=== PATIENT | female | born 1970 | race Hispanic/Latino ===

== ENCOUNTER 2017-04-16 13:21 | Emergency (ER) | payer OTHER ==
[2017-04-16 14:11] LABS: #Basophils 0.1 thou/uL (0.0-0.2); #Eosinphils 0.1 thou/uL (0.0-0.7); #Lymphocytes 3.7 thou/uL (1.20-3.40); #Monocytes 0.6 thou/uL (0.11-0.59); #Neutrophils 3.1 thou/uL (1.40-6.50); %Basophils 1.6 % (0.0-1.0); %Eosinophils 1.6 % (0.0-10.0); %Lymphocytes 48.3 % (21.0-51.0); %Monocytes 8.3 % (0.0-10.0); %Neutrophils 40.2 % (42.0-75.0); Hemoglobin 12.1 g/dL (12.0-16.0); Mean Corpuscular HGB CONC 33.4 g/dL (32.0-36.0); Mean Corpuscular Hemoglobin 29.4 pg (27.0-31.0); Mean Corpuscular Volume 88.1 fl (81.0-99.0); Platelet Count 198 thou/uL (130-400); RBC Distribution Width 11.9 % (11.5-14.5); Red Blood Cell (RBC) Count 4.13 mill/uL (4.20-5.40); White Blood Cell (WBC) Count 7.6 thou/uL (4.8-10.8)
== END 2017-04-16 14:01 | disposition home or self-care (01) ==
LOC: NAV ERS 13:21
DX: M96.830 Postprocedural hemorrhage of a musculoskeletal structure following a musculoskeletal system procedure (principal); F41.9 Anxiety disorder, unspecified; F32.9 Major depressive disorder, single episode, unspecified; E78.5 Hyperlipidemia, unspecified; I10 Essential (primary) hypertension; Z79.899 Other long term (current) drug therapy
CPT/HCPCS: 36415; 85025; 99283

== ENCOUNTER 2017-11-28 15:18 | Outpatient (CLI) | payer OTHER ==
--- NOTE | 2017-11-28 16:43 | RAD ---
FRONTAL VIEW PELVIS: INDICATIONS: Coccyx disorder. Pain. FINDINGS: Frontal view pelvis reveals postoperative findings of the imaged lower lumbar and sacral spine, as we ll as surgical clips overlying the lower midline pelvis. There is scattered osseous degenerative ariela nge. No fracture of the pelvis is seen. The coccyx is not reliably assessed on the basis of a front al view pelvis. IMPRESSION: Postoperative examination with scattered degenerative changes. No acute osseous abnormality. POS: [facility]
== END 2017-11-28 15:19 | disposition home or self-care (01) ==
LOC: NAV RAD 15:18
PROVIDERS: ATTEND Specialist
DX: M53.3 Sacrococcygeal disorders, not elsewhere classified (principal)
CPT/HCPCS: 72170

== ENCOUNTER 2018-02-07 11:14 | Emergency (ER) | payer OTHER ==
[2018-02-07] MEDS ORDERED: Ondansetron PF 4 MG/2 ML Vial ONE (11:51)
[2018-02-07 12:21] LABS: #Basophils 0.1 thou/uL (0.0-0.2); #Eosinphils 0.4 thou/uL (0.0-0.7); #Lymphocytes 3.4 thou/uL (1.20-3.40); #Monocytes 0.3 thou/uL (0.11-0.59); %Basophils 0.8 % (0.0-1.0); %Eosinophils 4.9 % (0.0-10.0); %Lymphocytes 41.2 % (21.0-51.0); %Monocytes 3.6 % (0.0-10.0); %Neutrophils 49.5 % (42.0-75.0); Hemoglobin 13.2 g/dL (12.0-16.0); Mean Corpuscular HGB CONC 33.4 g/dL (32.0-36.0); Mean Corpuscular Volume 89.7 fL (78.0-98.0); Mean Platelet Volume 7.9 fL (7.4-10.4); Platelet Count 180 thou/uL (130-400); White Blood Cell (WBC) Count 8.1 thou/uL (4.8-10.8)
[2018-02-07 12:31] LABS: ALT (SGPT) 44 U/L (8-55); AST (SGOT) 22 U/L (5-34); Albumin 4.3 g/dL (3.5-5.0); Alkaline Phosphatase 92 U/L (40-150); Anion Gap 17 mmol/L (10-20); BUN (Urea Nitrogen) 6 mg/dL (7.0-18.7); Bilirubin, Total 1.1 mg/dL (0.2-1.2); Calc. Creatinine Clearance 0 mL/min (70-130); Calcium 10.1 mg/dL (7.8-10.44); Carbon Dioxide 25 mmol/L (22-29); Chloride 101 mmol/L (98-107); Estimated GFR-MDRD 77; Globulin 3.3 g/dL (2.4-3.5); Glucose 119 mg/dL (70-105); Lipase 23 U/L (8-78); Potassium 3.9 mmol/L (3.5-5.1); Protein, Total 7.6 g/dL (6.0-8.3); Sodium 139 mmol/L (136-145)
[2018-02-07 13:16] LABS: Bilirubin Negative (Negative); Blood, Urine Negative (Negative); Clarity Clear (Clear); Glucose, Urine (Dipstick) Negative (Negative); Leukocyte Negative (Negative); Nitrite Negative (Negative); Protein, Urine (Dipstick) Negative (Neg-Trace); Urobilinogen 0.2 mg/dL (0.2-1.0)
--- NOTE | 2018-02-07 14:20 | CT ---
CT ABDOMEN AND PELVIS WITH IV CONTRAST: Date: 02/07/18 HISTORY: Recent colonic surgery, right lower quadrant pain. FINDINGS: There are atelectatic changes in the lung bases. A small hiatal hernia is present. No free air or shilpi e fluid is seen in the abdomen. There are inflammatory changes and a tiny amount of air in the left l ower anterior abdominal wall consistent with recent postop changes. A small amount of fluid is also s een in the anterior abdominal wall. The liver, spleen, pancreas, adrenal glands, and kidneys are normal. No calcified gallstones are seen . No pericecal inflammatory changes are noted. There are postop changes in the sigmoid colon with surrounding inflammatory changes. No abnormally lo culated fluid collection is seen to suggest abscess formation. There is air in the urinary bladder, l ikely due to recent instrumentation. There are postop changes of metallic hardware in the lower lumba r spine. IMPRESSION: Inflammatory changes in the pelvis, likely due to recent postop changes. No evidence of abscess forma tion. POS: [facility]
== END 2018-02-07 14:01 | disposition home or self-care (01) ==
LOC: NAV ERS 11:14
DX: R10.31 Right lower quadrant pain (principal); I10 Essential (primary) hypertension; E78.5 Hyperlipidemia, unspecified; F41.9 Anxiety disorder, unspecified; F32.9 Major depressive disorder, single episode, unspecified; Z79.899 Other long term (current) drug therapy
CPT/HCPCS: 74177; 80053; 81003; 83605; 83690; 85025; 96374; 96375; J2270; J2405